=== PATIENT | female | born 1995 | race Caucasian/White ===

== ENCOUNTER → 2021-09-18 12:48 | Outpatient (CLI) | payer BC, SELFPAY ==
--- NOTE | ~2021-09-18 | US_ITS ---
EXAMINATION: US OB /maternal detail DATE: 09/18/2021 13:24 INDICATION: survey TECHNIQUE: Multiple obstetric sonographic images performed. FINDINGS: No prior studies for comparison. There is a single living fetus in breech presentation. The placenta is posterior without placenta pr evia. Amniotic fluid volume is subjectively normal. cardiac activity and movement is noted with a heart rate of 150 beats per minute. The following anatomy was identified as normal: 4 chamber heart (ventricular outflow tracts are not well visualized) 3 vessel cord cord insertion kidneys urinary bladder stomach spine diaphragm ventricles cisterna magna cerebellum The following biometric data were obtained: BPD: 41mm corresponds to gestational age 18 weeks 4 days. Head circumference: 155 mm corresponds to gestational age 18 weeks 3 days. Abdominal circumference: 130 mm corresponds to gestational age 18 weeks 4 days. Femur length: 29 mm corresponds to gestational age 19 weeks 0 days. Head circumference to abdominal circumference ratio: 1.19 (normal range for expected gestational age is 1.09-1.26). Estimated weight: 253 grams +/- 38 grams using Hadlock method. IMPRESSION: 1: Single living intrauterine with an estimated gestational age of 18weeks 5days by current ultrasound measurements, with an EDC of 02/14/2022 in breech presentation. 2. Normal survey. Ventricular outflow tracts are not well visualized. Recommend attention to t hese structures on subsequent examination. Reviewed, dictated and finalized at location A. TIC TECHNOLOGIST IMPRESSION: 1: Single living intrauterine with an estimated gestational age of 18 weeks 5days by current ultrasound measurements, with an EDC of 02/14/2022 in bay ech presentation. 2. Normal survey. Ventricular outflow tracts are not well visualized. Re commend attention to these structures on subsequent examination.
== END ==
PROVIDERS: Visit Provider Obstetrics & Gynecology
DX: Z34.92 Encounter for supervision of normal pregnancy, unspecified, second trimester (principal); Z3A.18 18 weeks gestation of pregnancy
CPT/HCPCS: 76805

== ENCOUNTER → 2021-10-11 16:08 | Outpatient (CLI) | payer BC, SELFPAY ==
--- NOTE | ~2021-10-11 | US_ITS ---
US OB limited DATE: 10/11/2021 16:52 INDICATION: anatomy follow-up TECHNIQUE: Real-time imaging and Doppler analysis COMPARISON: 09/14/2021 obstetrical ultrasound examination FINDINGS: Live denis intrauterine gestation, fetus in breech presentation. Four chamber he art. Left and right ventricular outlet tracts appear normal. heart rate of 142 beats per min mely. Posterior placenta, lower margin 5.6 cm above internal os. Subjectively normal amount of amniotic fluid. IMPRESSION: Normal 4 chamber heart and outflow tracts Reviewed, dictated and finalized at [facility]. Reviewed, dictated and finalized at location A. OR NET DEVELOPER
== END ==
PROVIDERS: Visit Provider Obstetrics & Gynecology
DX: Z36.9 Encounter for antenatal screening, unspecified (principal)
CPT/HCPCS: 76815

== ENCOUNTER → 2023-09-21 15:56 | Outpatient (CLI) | payer BC, SELFPAY ==
--- NOTE | ~2023-09-21 | US_ITS ---
EXAMINATION: US OB /maternal detail DATE: 09/21/2023 16:49 INDICATION: survey TECHNIQUE: Multiple obstetric sonographic images performed. FINDINGS: No prior studies for comparison. There is a single living fetus in vertex presentation. The placenta is posterior without placenta pr evia. Amniotic fluid volume is subjectively normal. cardiac activity and movement is noted with a heart rate of 146 beats per minute. The following anatomy was identified as normal: 4 chamber heart 3 vessel cord cord insertion kidneys urinary bladder stomach spine diaphragm ventricles cisterna magna cerebellum The following biometric data were obtained: BPD: 49mm corresponds to gestational age 20 weeks 5 days. Head circumference: 176 mm corresponds to gestational age 20 weeks 1 days. Abdominal circumference: 151 mm corresponds to gestational age 20 weeks 2 days. Femur length: 30 mm corresponds to gestational age 19 weeks 3 days. Head circumference to abdominal circumference ratio: 1.17 (normal range for expected gestational age is 1.07-1.25). Estimated weight: 322 grams +/- 48 grams using Hadlock method, 41.7%. IMPRESSION: 1: Single living intrauterine with an estimated gestational age of 20weeks 1days by initial ultrasound measurements, with an EDC of 02/07/2024 in vertex presentation. 2. Normal survey. Reviewed, dictated and finalized at location L. GER STORY IMPRESSION: 1: Single living intrauterine with an estimated gestational age of 20 weeks 1days by initial ultrasound measurements, with an EDC of 02/07/2024 in sabino dilan presentation. 2. Normal survey.
== END ==
DX: Z36.9 Encounter for antenatal screening, unspecified (principal); Z3A.20 20 weeks gestation of pregnancy
CPT/HCPCS: 76805